=== PATIENT | female | born 1980 | race Caucasian/White ===

== ENCOUNTER 2017-12-13 14:24 | Day surgery (SDC) | payer OTHER ==
[2017-12-13] MEDS: CEFAZOLIN 2 GM/50 ML (PMX) 50 ML IVPB (15:30)
[2017-12-13] MEDS ORDERED: LACTATED RINGER'S 1,000 ML IV* (15:30)
[2017-12-13] MEDS ORDERED: SURGIFOAM POWDER 1 GM KIT (17:18)
[2017-12-13] MEDS ORDERED: POLYMYXIN/BACITRACIN 1L IRRIG (17:19)
[2017-12-13] MEDS ORDERED: AL HYDROX/MG HYDROX/SIMETH 30 ML CUP PO (17:30)
[2017-12-13] MEDS ORDERED: NALOXONE (0.4 MG/ML) INJ IV (17:30)
[2017-12-13] MEDS ORDERED: HYDROCODONE/APAP (10/325) TAB PO (17:30)
[2017-12-13] MEDS ORDERED: HYDROmorphONE 0.5 MG/0.5 ML SYG IV (17:30)
[2017-12-13] MEDS ORDERED: DIPHENHYDRAMINE 50 MG INJ IV ×2 (17:30→20:30)
[2017-12-13] MEDS ORDERED: ONDANSETRON 4 MG INJ IV (17:30)
[2017-12-13] MEDS ORDERED: CYCLOBENZAPRINE 10 MG TAB PO (17:30)
[2017-12-13] MEDS ORDERED: BISACODYL 10 MG SUPP PR (17:30)
[2017-12-13] MEDS ORDERED: MIDAZOLAM 1 MG/ML 2 ML INJ (18:09)
[2017-12-13] MEDS: HEPARIN 1000 UNITS/ML 10 ML INJ (18:40)
[2017-12-13] MEDS: THROMBIN 5000 UNIT VIAL (18:40)
[2017-12-13] MEDS: BUPIVACAINE 0.5%/EPI (SDV) 30 ML INJ ×2 (18:40→19:47)
[2017-12-13] MEDS: CA CHLORIDE 10% 10 ML SYRINGE (18:40)
[2017-12-13 19:09] LABS: ADD UMIC YES; UR ASCORBIC ACID NEGATIVE (NEGATIVE); UR BILIRUBIN (Dip) NEGATIVE (NEGATIVE); UR BLOOD (Dip) 1+ mg/dL (NEGATIVE); UR CLARITY CLEAR (CLEAR); UR COLOR YELLOW (YELLOW); UR GLUCOSE (Dip) NEGATIVE (NEGATIVE); UR KETONES (Dip) TRACE mg/dL (NEGATIVE); UR LEUKOCYTE ESTERASE (Dip) NEGATIVE Leu/ul (NEGATIVE); UR NITRITE (Dip) NEGATIVE (NEGATIVE); UR RBC 0 /HPF (0-5); UR SPECIFIC GRAVITY (Dip) 1.011 (1.003-1.030); UR TOTAL PROTEIN (Dip) NEGATIVE (NEGATIVE); UR UROBILINOGEN (Dip) NEGATIVE (NEGATIVE); UR WBC 0 /HPF (0-5)
[2017-12-13] MEDS: POLYMYXIN/BACITRACIN 1L IRRIG IRR (19:38)
[2017-12-13] MEDS: BUPIVACAINE 0.25% (MPF) 30 ML INJ (19:38)
[2017-12-13] MEDS ORDERED: ONDANSETRON 4 MG INJ (19:52)
[2017-12-13] MEDS ORDERED: METOCLOPRAMIDE 10 MG INJ (19:52)
[2017-12-13] MEDS ORDERED: PROPOFOL 20 ML (19:55)
[2017-12-13] MEDS ORDERED: ROCURONIUM 50 MG INJ (19:55)
[2017-12-13] MEDS ORDERED: LIDOCAINE 2% (SDV) 5 ML INJ (19:55)
[2017-12-13] MEDS ORDERED: NEOSTIGMINE 3 MG/3 ML SYRINGE (19:57)
[2017-12-13] MEDS ORDERED: GLYCOPYRROLATE 0.4 MG INJ (19:57)
[2017-12-13] MEDS ORDERED: CEFAZOLIN 1 GM INJ (20:06)
[2017-12-13] MEDS: HYDROmorphONE 0.2 MG/ML PCA IV (20:18)
[2017-12-13] MEDS: MEPERIDINE 25 MG INJ IV (20:27)
[2017-12-13] MEDS: ONDANSETRON 4 MG INJ IV (20:27)
[2017-12-13] MEDS ORDERED: HYDROmorphONE 1 MG/5 ML IV SYRINGE IV ×2 (20:30)
[2017-12-13] MEDS ORDERED: METOCLOPRAMIDE 10 MG INJ IV (20:30)
[2017-12-13] MEDS ORDERED: FENTAnyl 50 MCG/ML VIAL IV (20:30)
[2017-12-13] MEDS: DOCUSATE SODIUM 100 MG CAP PO (22:00)
[2017-12-13] MEDS: D5W-0.45 NACL + KCL 20 MEQ 1,000 ML IV (22:03)
[2017-12-14] MEDS: CEFAZOLIN 1 GM/50 ML (PMX) 50 ML IVPB ×3 (01:18→09:10)
[2017-12-14] MEDS: CEPASTAT LOZENGE MT (01:22)
[2017-12-14] MEDS: D5W-0.45 NACL + KCL 20 MEQ 1,000 ML IV ×2 (03:28→12:06)
[2017-12-14] MEDS: ACETAMINOPHEN 325 MG TAB PO (05:29)
[2017-12-14 05:42] LABS: ADD MAN DIFF? NO
[2017-12-14 05:45] LABS: BASOPHIL # 0.1 10^3/ul (0.0-0.1); BASOPHILS % 0.4 % (0.0-2.0); EOSINOPHILS % 0.1 % (0.0-7.0); HEMATOCRIT 27.6 % (37.0-47.0); HEMOGLOBIN 8.8 g/dl (12.0-16.0); LYMPHOCYTES % 18.3 % (15.0-51.0); MEAN CORPUSCULAR HEMOGLOBIN 26.7 pg (29.0-33.0); MEAN CORPUSCULAR HGB CONC 31.9 g/dl (32.0-37.0); MEAN CORPUSCULAR VOLUME 83.6 fl (82.0-101.0); MEAN PLATELET VOLUME 10.8 fl (7.4-10.4); MONOCYTE # 0.7 10^3/ul (0.3-0.9); NEUTROPHIL # 8.3 10^3/ul (1.6-7.5); NEUTROPHILS % 74.8 % (39.0-77.0); PLATELET COUNT 166 10^3/UL (140-415); RED CELL DISTRIBUTION WIDTH 15.4 % (11.5-14.5)
[2017-12-14 05:45] LABS: WHITE BLOOD COUNT 11.1 10^3/ul (4.8-10.8)
[2017-12-14 06:19] LABS: ANION GAP 12 (8-16); BLOOD UREA NITROGEN 9 mg/dl (7-20); CALCIUM 8.5 mg/dl (8.4-10.2); CARBON DIOXIDE 25 mmol/L (21-31); CHLORIDE 107 mmol/L (97-110); CREATININE 0.89 mg/dl (0.44-1.00); GLUCOSE 98 mg/dl (70-220); MAGNESIUM 1.6 mg/dl (1.7-2.5); POTASSIUM 4.4 mmol/L (3.5-5.1); SODIUM 140 mmol/L (135-144)
[2017-12-14] MEDS: DOCUSATE SODIUM 100 MG CAP PO (09:00)
[2017-12-14] MEDS: HYDROCODONE/APAP (10/325) TAB PO (09:13)
== END 2017-12-14 15:05 | disposition home or self-care (01) ==
LOC: SDS 12-14 15:05 → MS1 21:15
DX: M51.17 Intervertebral disc disorders with radiculopathy, lumbosacral region (principal); E66.9 Obesity, unspecified; Z68.29 Body mass index [BMI] 29.0-29.9, adult
CPT/HCPCS: 63030; 72020; 80048; 81001; 83735; 84703; 85025; 86999; 87086; 97116; 97161; 97530

== ENCOUNTER → 2017-12-22 | Outpatient (CLI) | payer OTHER | END | disposition home or self-care (01) | LOC: U/S 15:48 | DX: M54.17 Radiculopathy, lumbosacral region (principal) | CPT/HCPCS: 93970 ==